=== PATIENT | female | born 1985 | race Two or more races ===

== ENCOUNTER 2017-04-14 02:49 | Inpatient (IN) | payer OTHER ==
[2017-04-14] VITALS (22 sets, daily range): BP systolic 83–134; BP diastolic 55–83; PULSE 68–88; RESP 16–21; TEMP 97.7–98.4; O2SAT 95–98
[2017-04-14] MEDS ORDERED: CITRIC ACID-SODIUM CITRATE LIQ 30 ML UDC ONE (03:32)
[2017-04-14] MEDS ORDERED: LACTATED RINGER'S 1000 ML INJ 1,000 ML IV ONE (03:36)
--- NOTE | 2017-04-14 03:36 | PD ---
HPI Chief Complaint contractions Date Seen: Apr 14, 2017 Time Seen: 03:31 Travel History International Travel<30 Days: No Contact w/Intl Traveler<30Days: No Known Affected Area: No History of Present Illness HPI 31yo at [id number] gestation who is here for contractions that began last evening. Denies antepartum complications. GBS positive. Para: 0 : 1 History Past Medical History Medical History: Denies Significant Hx Past Surgical History Surgical History: No Previous Surgery Family History Family History: Negative Social History Alcohol Use: No Tobacco Use: No Substance Abuse: No Review of Systems Except as stated in HPI: all other systems reviewed are Neg Physical Exam Narrative GENERAL: Well-nourished, well-developed patient. SKIN: Warm and dry. HEAD: Normocephalic and atraumatic. EYES: No scleral icterus. No injection or drainage. ENT: No nasal drainage noted. Mucous membranes pink. Airway patent. NECK: Supple, trachea midline. No JVD. CARDIOVASCULAR: Regular rate and rhythm without murmurs, gallops, or rubs. RESPIRATORY: Breath sounds equal bilaterally. No accessory muscle use. ABDOMEN/GI: Abdomen soft, non-tender, bowel sounds present, no rebound, no guarding Gravid to [-38] weeks size Fundal Height: [-] GENITOURINARY: External Genitalia: intact and normal in appearance BUS glands: [nl-] Cervix: [-mid] Dilatation: [-5-6] Effacement: [-80] Station: [-02] Presentation: [bulging bag] Membranes: [intact] Uterine Contractions: [-q5 bradley] Sonogram done to confirm presenting part. Patient is complete breech presentation on sonogram. FHT's: Category: [-1] Baseline: [-145] Reactive: [mod-] Variability: [-mod] Decels: [-absent] EXTREMITIES: No cyanosis or edema. BACK: Nontender without obvious deformity. No CVA tenderness. NEUROLOGICAL: Awake and alert. Motor and sensory grossly within normal limits. Five out of 5 muscle strength in all muscle groups. Normal speech. Data Data Vital Signs Reviewed: Yes Orders Ob (2e) Additional Admit Info (04/14/17 03:23) [facility] Medical Record Reviewed: Yes Plan 31yo at 38-39 weeks in labor with malpresentation on exam and sonogram Complete breech GBS positive - Patient will be admitted for . Dr Ko notified Diagnosis Diagnosis: Primary Impression: 38 weeks gestation of Additional Impressions: Breech presentation Irregular uterine contractions Positive GBS test Chyna Toribio MD Apr 14, 2017 03:36
[2017-04-14] MEDS ORDERED: ACETAMINOPHEN 1000 MG/100 ML VIAL IV ONE (03:48)
[2017-04-14] MEDS ORDERED: OXYTOCIN 10 UNIT/ML AMP ONE (03:48)
[2017-04-14] MEDS ORDERED: ONDANSETRON HCL 4 MG/2 ML VIAL ONE ×2 (03:48→06:49)
[2017-04-14] MEDS ORDERED: MORPHINE SULFATE PF 5 MG/10 ML VIAL ONE (03:48)
[2017-04-14 03:49] LABS: AUTOMATED NEUTROPHIL # 8.4 TH/MM3 (1.8-7.7); BASOPHIL % 0.4 % (0.0-2.0); EOSINOPHIL # 0.1 TH/MM3 (0-0.4); LYMPH % 24.7 % (9.0-44.0); LYMPHOCYTE # 3.1 TH/MM3 (1.0-4.8); MEAN CELL VOLUME 97.7 FL (80.0-100.0); MEAN CORPUSCULAR HEMOGLOBIN 33.9 PG (27.0-34.0); MEAN CORPUSCULAR HGB CONC 34.7 % (32.0-36.0); MONO % 6.8 % (0.0-8.0); NEUT % 67.1 % (16.0-70.0); PLATELET COUNT 181 TH/MM3 (150-450); WHITE BLOOD COUNT 12.5 TH/MM3 (4.0-11.0)
[2017-04-14 03:51] LABS: HEMO FLAGS AUTO DIFF
[2017-04-14 03:54] LABS: BACTERIA, URINE RARE /hpf; BLOOD, URINE MOD (NEG); GLUCOSE,URINE NEG (NEG); KETONE, URINE NEG (NEG); MUCUS URINE FEW /lpf (OCC); NITRITE,URINE NEG (NEG); PH, URINE 6.5 (5.0-8.5); SQUAMOUS EPITHELIAL CELL URINE <1 /hpf (0-5); URINE COLOR LIGHT-YELLOW (YELLW/STRAW)
[2017-04-14] MEDS ORDERED: ceFAZolin INJ 1,000 MG VIAL ONE (03:54)
[2017-04-14 03:55] LABS: COMMENT (UR) CULT NOT INDICATED; CULTURE IF INDICATED CULT NOT INDICATED
[2017-04-14] MEDS ORDERED: LACTATED RINGER'S 1000 ML INJ 1,000 ML IV SCH (04:06)
[2017-04-14 04:39] LABS: BANDS 18 % (0-6); METAMYELOCYTES 1 % (0-1); MYELOCYTES 3 % (0-0); NEUTROPHIL # MANUAL DIFF 8.8 TH/MM3 (1.8-7.7); POLYS (SEG NEUTROPHILS) 48 % (16-70); WBC DIFF SAMPLE 100
[2017-04-14 04:41] LABS: PLATELET ESTIMATE SMEAR NORMAL (NORMAL); PLATELET MORPHOLOGY ENLARGED (NORMAL); SCAN/DIFF FINAL DIFF MANUAL
[2017-04-14] MEDS ORDERED: ceFAZolin 2 GM PREMIX 50 ML IV SCH (04:45)
[2017-04-14] MEDS ORDERED: OXYTOCIN 30 UNITS-500ML PREMIX 500 ML IV ONE ×2 (05:15)
[2017-04-14] MEDS ORDERED: SODIUM CHLORIDE 0.9% FLUSH 10 ML FLUSH IV FLUSH PRN (05:15)
[2017-04-14] MEDS ORDERED: ACETAMINOPHEN 325 MG TAB PO PRN (05:15)
[2017-04-14] MEDS ORDERED: oxyCODONE/ACETAMINOPHEN 5 MG/325 MG TAB PO PRN (05:15)
[2017-04-14] MEDS ORDERED: CITRIC ACID-SODIUM CITRATE LIQ 30 ML UDC PO SCH (05:15)
[2017-04-14] MEDS ORDERED: ZOLPIDEM TARTRATE 5 MG TAB PO PRN (05:15)
[2017-04-14] MEDS: LACTATED RINGER'S 1000 ML INJ 1,000 ML IV SCH ×2 (05:25→12:14)
[2017-04-14] MEDS: ONDANSETRON HCL 4 MG/2 ML VIAL IV PUSH PRN ×2 (05:27→06:50)
[2017-04-14] MEDS ORDERED: OXYTOCIN 30 UNITS-500ML PREMIX 500 ML ONE ×2 (06:16→07:23)
[2017-04-14] MEDS ORDERED: PROMETHAZINE INJ 25 MG/ML VIAL IM PRN (09:00)
--- NOTE | 2017-04-14 14:34 | MP ---
cc: Giovana KO MD DATE OF SURGERY: 04/14/2017 PREOPERATIVE DIAGNOSIS 1. Intrauterine at term. 2. Labor. 3. Breech. POSTOPERATIVE DIAGNOSIS 1. Intrauterine at term. 2. Labor. 3. Breech. PROCEDURE Primary low transverse section. ANESTHESIA Spinal. SURGEON Giovana Ko MD FINDINGS Normal male infant, Apgars 9 and 9, weight 7 pounds 4 ounces. COMPLICATIONS None. COUNTS Correct. ESTIMATED BLOOD LOSS 500 cc. FLUIDS Crystalloid. CONDITION The patient tolerated the procedure well and went to the recovery room in good condition. INDICATION FOR PROCEDURE The patient came in, in advanced labor, 5-6 cm, and was found to be breech. Ultrasound confirmed. I was called in to do a . PROCEDURE IN DETAIL Under an adequate level of anesthesia, she was prepped and draped for abdominal surgery. A Pfannenstiel incision was made and carried down to the fascia. The fascia was taken off the rectus muscle by blunt and sharp dissection. The rectus muscles were spread bluntly and the peritoneum was entered under direct vision without difficulty. The incision was extended with care to avoid the urinary bladder. A bladder blade was placed and a bladder flap created in the usual fashion. The uterine incision was made in a transverse manner along the lower uterine segment which was not well-developed. It was taken down in the midline until the intrauterine cavity was entered. A large amount of clear fluid was noted. The breech was grasped and delivered without difficulty. The legs were delivered and the thorax was delivered. The arms were reduced bilaterally without difficulty. With gentle fundal pressure the vertex was delivered without difficulty and the hypopharynx and nasopharynx were suctioned. The cord doubly clamped and cut and the handed to the resuscitation team present. The placenta was delivered manually. The uterus was curettaged twice with a wet lap and irrigated with a large amount of fluid. The uterine incision was then repaired with 2-0 Vicryl in a running locking fashion, with the second layer imbricating the first. Hemostasis was excellent. The cul-de-sac and gutters were cleaned of blood and debris. The uterus was delivered back into the abdomen. The rectus muscles were reapproximated with 0 Vicryl in interrupted fashion. The fascia was repaired from lateral to midline with 0 Vicryl and the subcu was repaired with 3-0 Vicryl. The skin was repaired with a 4-0 Vicryl in a subcuticular manner. The wound was sterilely dressed. She tolerated the procedure well and went to the recovery room in satisfactory condition. R. MD SYEDA Odell/ABIMAEL /5:12 AM /2:30 PM
[2017-04-14] MEDS ORDERED: OXYTOCIN 30 UNITS-500ML PREMIX 500 ML IV PRN (15:15)
[2017-04-14] MEDS: IBUPROFEN 600 MG TAB PO PRN (20:29)
[2017-04-14] MEDS: SODIUM CHLORIDE 0.9% FLUSH 10 ML FLUSH IV FLUSH SCH (21:00)
[2017-04-14] MEDS ORDERED: diphenhydrAMINE HCL 50 MG/ML VIAL IV PRN (23:45)
[2017-04-15 05:56] LABS: AUTOMATED NEUTROPHIL # 7.8 TH/MM3 (1.8-7.7); BASOPHIL % 0.4 % (0.0-2.0); EOSINOPHIL % 0.4 % (0.0-4.0); HEMATOCRIT 34.9 % (35.0-46.0); HEMO FLAGS DIFF FINAL; LYMPHOCYTE # 1.9 TH/MM3 (1.0-4.8); MEAN CELL VOLUME 99.2 FL (80.0-100.0); MEAN CORPUSCULAR HEMOGLOBIN 34.2 PG (27.0-34.0); MEAN CORPUSCULAR HGB CONC 34.4 % (32.0-36.0); MONO % 6.2 % (0.0-8.0); PLATELET COUNT 159 TH/MM3 (150-450); RED BLOOD COUNT 3.51 MIL/MM3 (4.00-5.30); RED CELL DISTRIBUTION WIDTH 14.2 % (11.6-17.2); WHITE BLOOD COUNT 10.5 TH/MM3 (4.0-11.0)
[2017-04-15 08:15] VITALS: BP 106/67; PULSE 75; RESP 18; TEMP 98.1
[2017-04-15] MEDS: IBUPROFEN 600 MG TAB PO PRN ×3 (08:16→21:29)
[2017-04-15] MEDS: oxyCODONE/ACETAMINOPHEN 5 MG/325 MG TAB PO PRN ×3 (08:17→21:29)
--- NOTE | 2017-04-15 08:49 | HHI.OB ---
Subjective Post Operative Day: 1 Objective Vitals/I&O Vital Signs Date Time Temp Pulse Resp B/P Pulse Ox O2 Delivery O2 Flow Rate FiO2 04/14/17 23:36 98.4 76 18 04/14/17 23:16 83/57 04/14/17 20:00 78 18 92/55 04/14/17 16:05 97.7 74 16 97/57 04/14/17 12:05 70 106/60 04/14/17 12:05 98.3 16 04/14/17 09:00 74 16 98/57 04/14/17 09:00 97.7 Result Diagram: 04/15/17 0525 Objective Remarks GENERAL: Well-nourished, well-developed patient. CARDIOVASCULAR: Regular rate and rhythm without murmurs, gallops, or rubs. RESPIRATORY: Breath sounds equal bilaterally. No accessory muscle use. ABDOMEN/GI: Abdomen soft, non-tender, bowel sounds present. Incision: PRIMAPORE DRESSING, Clean, dry and intact. Fundus: Firm, non-tender at umbilicus. GENITOURINARY: Light to moderate bleeding. EXTREMITIES: No cyanosis or edema, non-tender, without signs of DVT. Medications and IVs Current Medications Medications (Trade) Dose Ordered Sig/Rebecca Route Start Time Stop Time Status Last Admin (NS Flush) 2 ml BID IV FLUSH 04/14/17 09:00 (NS Flush) 2 ml UNSCH PRN IV FLUSH 04/14/17 05:15 (Mylicon Chew) 80 mg QID PRN PO 04/14/17 05:15 (Tylenol) 650 mg Q6H PRN PO 04/14/17 05:15 (Motrin) 600 mg Q6H PRN PO 04/14/17 05:15 04/15/17 08:16 (Percocet 5-325 Mg) 1 tab Q4H PRN PO 04/14/17 05:15 04/15/17 08:17 (Percocet 5-325 Mg) 2 tab Q4H PRN PO 04/14/17 05:15 (Rhiannon-Colace) 2 tab Q12H PRN PO 04/14/17 05:15 (Ambien) 5 mg HS PRN PO 04/14/17 05:15 (M-M-R Ii Inj) 0.5 ml ONCE ONCE SQ 04/15/17 16:00 04/15/17 16:01 (Boostrix Inj) 0.5 ml ONCE ONCE IM 04/15/17 16:00 04/15/17 16:01 04/14/17 21:06 (Zofran Inj) 4 mg Q6H PRN IV PUSH 04/14/17 05:15 04/14/17 06:50 (Benadryl Inj) 50 mg Q6H PRN IV 04/14/17 23:45 04/14/17 23:50 Assessment/Plan Problem List: (1) S/P primary low transverse Plan: ROUTINE Assessment and Plan PT DOING WELL PAIN MEDICATION ENCOURAGE, PT REFUSED NIGHT DOSE AND WAS PAINFUL THIS AM PT WILL SHOWER TODAY ROUTINE Discharge Planning CONSIDER DC IN 1-2 DAYS Hazel Long Apr 15, 2017 08:49
[2017-04-15] MEDS: DOCUSATE SODIUM 50 MG/SENNA 8.6 MG TAB PO PRN (15:18)
[2017-04-15] MEDS ORDERED: MEASLES, MUMPS, RUBELLA VACCINE 0.5 ML VIAL SQ ONE (16:00)
[2017-04-15] MEDS ORDERED: DIPHTH/TETANUS/ACEL PERTUSSIS (BOOSTER) 0.5 ML VIAL/PFS IM ONE (16:00)
[2017-04-15 20:13] VITALS: BP 107/65; PULSE 70; RESP 16; TEMP 97.5
[2017-04-15] MEDS: SODIUM CHLORIDE 0.9% FLUSH 10 ML FLUSH IV FLUSH SCH (21:00)
[2017-04-15] MEDS: SIMETHICONE 80 MG CHEWABLE TAB PO PRN (23:12)
[2017-04-16] MEDS: oxyCODONE/ACETAMINOPHEN 5 MG/325 MG TAB PO PRN ×4 (04:30→20:47)
[2017-04-16] MEDS: IBUPROFEN 600 MG TAB PO PRN ×3 (04:31→20:47)
[2017-04-16 08:05] VITALS: BP 92/53; PULSE 69; RESP 18; TEMP 98.3
[2017-04-16] MEDS: DOCUSATE SODIUM 50 MG/SENNA 8.6 MG TAB PO PRN (08:06)
[2017-04-16] MEDS ORDERED: OXYC1TAB63 PO (08:27)
[2017-04-16] MEDS ORDERED: IBUP-232 PO (08:27)
[2017-04-16] MEDS ORDERED: SENN1TAB PO (08:27)
--- NOTE | 2017-04-16 09:04 | HHI.DCPOC ---
Discharge Care Plan Diagnosis: (1) S/P primary low transverse Your Health Problems Are: delivery Report Symptoms to Your Doctor -Temperature above 100.5 degrees -Redness, of incision or excessive or foul smelling drainage -Unusual pain or calf pain -Increased vaginal bleeding -Painful or difficulty urinating -Feelings of extreme sadness or anxiety after 2 weeks Goals to Promote Your Health * To prevent worsening of your condition and complications * To maintain your health at the optimal level Directions to Meet Your Goals Take your medications as prescribed Follow your dietary instruction Follow activity as directed Ensure plenty of rest for recovery Drink fluids for hydration Keep your appointments as scheduled Take your immunizations and boosters as scheduled If your symptoms worsen call your PCP, if no PCP go to Urgent Care Center or Emergency Room Smoking is Dangerous to Your Health. Avoid second hand smoke Call the 24-hour crisis hotline for domestic abuse at Hazel Long Apr 16, 2017 09:04
--- NOTE | 2017-04-16 09:06 | HHI.DS ---
Admission Date Apr 14, 2017 at 03:23 Discharge Date: Apr 16, 2017 Admitting Diagnosis breech labor term Diagnosis: (1) S/P primary low transverse Diagnosis: Principal Delivery Date: Apr 14, 2017 : Primary Reason: breech Infant: Male Brief History 31yo at [id number] gestation who is here for contractions that began last evening. Denies antepartum complications. GBS positive. 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
--- NOTE | 2017-04-16 10:57 | HHI.OB ---
Subjective Post Operative Day: 2 Objective Vitals/I&O Vital Signs Date Time Temp Pulse Resp B/P Pulse Ox O2 Delivery O2 Flow Rate FiO2 04/16/17 08:05 69 92/53 04/16/17 08:05 98.3 18 04/15/17 20:13 97.5 70 16 107/65 Result Diagram: 04/15/17 0525 Objective Remarks GENERAL: Well-nourished, well-developed patient. CARDIOVASCULAR: Regular rate and rhythm without murmurs, gallops, or rubs. RESPIRATORY: Breath sounds equal bilaterally. No accessory muscle use. ABDOMEN/GI: Abdomen soft, non-tender, bowel sounds present. Incision, Clean, dry and intact. Fundus: Firm, non-tender at umbilicus. GENITOURINARY: Light to moderate bleeding. EXTREMITIES: No cyanosis or edema, non-tender, without signs of DVT. Medications and IVs Current Medications Medications (Trade) Dose Ordered Sig/Rebecca Route Start Time Stop Time Status Last Admin (NS Flush) 2 ml BID IV FLUSH 04/14/17 09:00 (NS Flush) 2 ml UNSCH PRN IV FLUSH 04/14/17 05:15 (Mylicon Chew) 80 mg QID PRN PO 04/14/17 05:15 04/15/17 23:12 (Tylenol) 650 mg Q6H PRN PO 04/14/17 05:15 (Motrin) 600 mg Q6H PRN PO 04/14/17 05:15 04/16/17 04:31 (Percocet 5-325 Mg) 1 tab Q4H PRN PO 04/14/17 05:15 04/16/17 04:30 (Percocet 5-325 Mg) 2 tab Q4H PRN PO 04/14/17 05:15 (Rhiannon-Colace) 2 tab Q12H PRN PO 04/14/17 05:15 04/16/17 08:06 (Ambien) 5 mg HS PRN PO 04/14/17 05:15 (Zofran Inj) 4 mg Q6H PRN IV PUSH 04/14/17 05:15 04/14/17 06:50 (Benadryl Inj) 50 mg Q6H PRN IV 04/14/17 23:45 04/14/17 23:50 Assessment/Plan Problem List: (1) S/P primary low transverse Plan: ROUTINE Assessment and Plan PT DOING WELL PAIN WELL MANAGED WITH ORAL PAIN MEDICATION GOING WELL ROUTINE Discharge Planning DC HOME TODAY Hazel Long Apr 16, 2017 10:57
[2017-04-16] MEDS: SIMETHICONE 80 MG CHEWABLE TAB PO PRN (12:32)
[2017-04-16 20:30] VITALS: BP 105/69; PULSE 74; RESP 18; TEMP 98
[2017-04-17] MEDS: IBUPROFEN 600 MG TAB PO PRN ×2 (03:59→10:33)
[2017-04-17] MEDS: oxyCODONE/ACETAMINOPHEN 5 MG/325 MG TAB PO PRN ×2 (03:59→08:47)
[2017-04-17] MEDS: SODIUM CHLORIDE 0.9% FLUSH 10 ML FLUSH IV FLUSH SCH (07:26)
[2017-04-17] MEDS: DOCUSATE SODIUM 50 MG/SENNA 8.6 MG TAB PO PRN (08:47)
[2017-04-17] MEDS: SIMETHICONE 80 MG CHEWABLE TAB PO PRN (08:47)
[2017-04-17 08:55] VITALS: BP 119/63; PULSE 80; RESP 18; TEMP 98.1
== END 2017-04-17 12:55 | disposition home or self-care (01) | DRG 766 ==
LOC: HOBED 02:49 → H2EA 03:23 → H2EB 05:49 → H1EA 07:56
PROVIDERS: ADMIT Obstetrics & Gynecology; ATTEND Obstetrics & Gynecology
PROC: 10D00Z1 Extraction of Products of Conception, Low, Open Approach (ICD-10-PCS; principal; 2017-04-14)
DX: O32.1XX0 Maternal care for breech presentation, not applicable or unspecified (principal); O99.824 Streptococcus B carrier state complicating childbirth; Z37.0 Single live birth; Z3A.38 38 weeks gestation of pregnancy
CPT/HCPCS: 59025; 76815; 81001; 85007; 85025; 85027; 86850; 86900; 86901; 90715; J0131; J0690; J1200; J2274; J2405; J2550; J2590; J3010; J7120

== ENCOUNTER → 2017-09-11 | Outpatient (CLI) | payer OTHER ==
[~2017-09-11] MED LIST: IBUP-232 PO; OXYC1TAB63 PO; SENN1TAB PO
--- NOTE | 2017-09-11 11:57 | RADRPT ---
EXAM DATE/TIME: 09/11/2017 11:09 [place] COMPARISON: No previous studies available for comparison. INDICATIONS : Abnormal labs. MEDICAL HISTORY : Elevated liver enzymes. SURGICAL HISTORY : None. ENCOUNTER: Initial ACUITY: 1 day PAIN SCORE: 2/10 LOCATION: Right upper quadrant MEASUREMENTS: LIVER: 15.8 cm length COMMON DUCT: 2 mm RIGHT KIDNEY: 8.6 x 2.3 x 3.9 cm SPLEEN: 8.3 cm length FINDINGS: LIVER: Normal echotexture without focal lesion or ductal dilatation. COMMON DUCT: No intraluminal mass or stone visualized. GALLBLADDER: Contains no stones, demonstrates no wall thickening or pericholecystic fluid. PANCREAS: The visualized portions are within normal limits. RIGHT KIDNEY: No hydronephrosis, stone or mass. SPLEEN: No focal lesion. CONCLUSION: Normal ultrasound of the liver. Noah Ovalle MD on September 11, 2017 at 11:54 Board Certified Radiologist. This report was verified electronically.
== END ==
LOC: HRAD 09:29
DX: R74.8 Abnormal levels of other serum enzymes (principal)
CPT/HCPCS: 76705